=== PATIENT | female | born 1945 | race Caucasian/White ===

== ENCOUNTER 2016-10-08 07:04 | Day surgery (SDC) | payer MEDICARE, OTHER ==
[2016-10-08] VITALS (9 sets, daily range): BP systolic 130–198; BP diastolic 74–128; PULSE 41–90; RESP 16–20; TEMP 98–98.2; O2SAT 69–98
[~2016-10-08] VITALS: Ht 152.4 cm; Wt 70.9 kg
[2016-10-08] MEDS ORDERED: BETA300T PO (07:27)
[2016-10-08] MEDS ORDERED: MAGN400T2 PO (07:27)
[2016-10-08] MEDS ORDERED: SELE1TAB PO (07:27)
[2016-10-08] MEDS ORDERED: VALS160T6 PO (07:27)
[2016-10-08] MEDS ORDERED: PROBCAP11 (07:27)
[2016-10-08] MEDS ORDERED: THYR1TAB PO (07:27)
[2016-10-08] MEDS ORDERED: CO Q10CA (07:27)
[2016-10-08] MEDS ORDERED: POTA-163 PO (07:27)
[2016-10-08] MEDS ORDERED: BUME1TAB26 PO (07:27)
[2016-10-08] MEDS ORDERED: ASCO500C PO (07:28)
[2016-10-08] MEDS ORDERED: SUPETAB20 PO (07:28)
[2016-10-08] MEDS ORDERED: CHOL1CHW5 CHEW (07:28)
[2016-10-08] MEDS ORDERED: MIDAZOLAM HCL 5 MG/5 ML VIAL ONE (07:31)
[2016-10-08] MEDS ORDERED: fentaNYL CITRATE 250 MCG/5 ML AMP ONE (07:32)
[2016-10-08] MEDS ORDERED: SODIUM CHLOR 0.9% 1000 ML IV SCH (07:45)
[2016-10-08] MEDS ORDERED: LIDOCAINE 1%/EPINEPHrine 1:100,000 SOLN 20 ML VIAL ONE (07:47)
[2016-10-08 10:04] LABS: AUTOMATED NEUTROPHIL # 3.9 TH/MM3 (1.8-7.7); BASOPHIL % 0.3 % (0.0-2.0); EOSINOPHIL % 0.6 % (0.0-4.0); HEMATOCRIT 36.9 % (35.0-46.0); HEMO FLAGS DIFF FINAL; LYMPH % 26.5 % (9.0-44.0); LYMPHOCYTE # 1.6 TH/MM3 (1.0-4.8); MEAN CELL VOLUME 83.5 FL (80.0-100.0); MEAN CORPUSCULAR HEMOGLOBIN 28.8 PG (27.0-34.0); MEAN CORPUSCULAR HGB CONC 34.5 % (32.0-36.0); MONO % 7.4 % (0.0-8.0); NEUT % 65.2 % (16.0-70.0); PLATELET COUNT 131 TH/MM3 (150-450); RED BLOOD COUNT 4.42 MIL/MM3 (4.00-5.30); RED CELL DISTRIBUTION WIDTH 13.2 % (11.6-17.2); WHITE BLOOD COUNT 5.9 TH/MM3 (4.0-11.0)
[2016-10-08 11:46] LABS: AUTOMATED NEUTROPHIL # 4.8 TH/MM3 (1.8-7.7); BASOPHIL % 0.5 % (0.0-2.0); EOSINOPHIL % 0.4 % (0.0-4.0); HEMATOCRIT 37.9 % (35.0-46.0); HEMO FLAGS DIFF FINAL; LYMPH % 25.6 % (9.0-44.0); LYMPHOCYTE # 1.8 TH/MM3 (1.0-4.8); MEAN CELL VOLUME 82.5 FL (80.0-100.0); MEAN CORPUSCULAR HGB CONC 35.2 % (32.0-36.0); MONO % 7.1 % (0.0-8.0); NEUT % 66.4 % (16.0-70.0); PLATELET COUNT 152 TH/MM3 (150-450); RED BLOOD COUNT 4.59 MIL/MM3 (4.00-5.30); RED CELL DISTRIBUTION WIDTH 13.3 % (11.6-17.2); WHITE BLOOD COUNT 7.2 TH/MM3 (4.0-11.0)
--- NOTE | 2016-10-08 15:13 | RADRPT ---
EXAM DATE/TIME: 10/08/2016 08:17 [place] COMPARISON: No previous studies available for comparison. INDICATIONS : Acute nephrotic syndrome. SEDATION TIME: 40 minutes BIOPSY SITE: Right MEDICATION(S): 1.) 2 mg midazolam (Versed) IV 2.) 100 mcg fentanyl (Sublimaze) IV DEVICE(S): 1.) 20 gauge Temno core biopsy needle MEDICAL HISTORY : Hypertension. SURGICAL HISTORY : None. ENCOUNTER: Initial ACUITY: 1 day PAIN SCORE: 0/10 LOCATION: Right lower quadrant A total of two core specimen(s) were obtained and sent to the laboratory for pathologic evaluation. PROCEDURE: 1. CT guided renal biopsy. 2. Conscious sedation with continuous EKG and oximetry monitoring. 3. EKG and oximetry remained stable throughout the procedure. Prior to the procedure informed consent was obtained. Any appropriate prior imaging studies were rev iewed. Using automated exposure control and adjustment of the mA and/or kV according to patient size, radiat ion dose was kept as low as reasonably achievable to obtain optimal diagnostic quality images. The site was prepped in a sterile fashion. Full sterile technique was used, including cap, mask, alysha rile gloves and gown and a large sterile sheet. Hand hygiene and 2% chlorhexidine and/or betadine/al cohol prep was utilized per protocol for cutaneous antisepsis. The skin and subcutaneous tissues wer e infiltrated with local anesthetic solution. With CT guidance the previously identified target was localized. Biopsy was performed using the presc ribed needle as above. Adequate hemostasis was obtained with compression at the puncture site. Follow-up CT scan reveals no hemorrhage. The patient tolerated the procedure well and there were no complications. The patient was returned to the Radiology Outpatient Unit in stable condition. CONCLUSION: Uncomplicated CT guided biopsy of the lower pole of the right kidney. Dave Ching MD on October 08, 2016 at 15:11 Board Certified Radiologist. This report was verified electronically.
== END 2016-10-08 14:45 | disposition home or self-care (01) ==
LOC: HRAD 07:04 → HRIP 07:05 → HRAD 14:45
PROVIDERS: ATTEND Internal Medicine Nephrology
DX: N04.9 Nephrotic syndrome with unspecified morphologic changes (principal); I12.9 Hypertensive chronic kidney disease with stage 1 through stage 4 chronic kidney disease, or unspecified chronic kidney disease; N18.9 Chronic kidney disease, unspecified; M19.90 Unspecified osteoarthritis, unspecified site; I25.10 Atherosclerotic heart disease of native coronary artery without angina pectoris
CPT/HCPCS: 50200; 77012; 85025; 88305; 88313; 88346; 88348; 88350; J2250; J3010